=== PATIENT | male | born 1975 | race Caucasian/White ===

== ENCOUNTER 2021-09-21 19:42 | Emergency (ER) | payer BC ==
[~2021-09-21] VITALS: Ht 72 cm; Wt 104.3 kg
[~2021-09-21 19:42] MED LIST: ALAVERT; HYDR1TAB PO; ONDA8TAB9 PO
[2021-09-21 19:58] LABS: BASOPHILS # (AUTO) 0.1 10^3/uL (0.0-0.1); BASOPHILS % (AUTO) 1 % (0-10); EOSINOPHILS # (AUTO) 0.1 10^3/uL (0.0-0.3); EOSINOPHILS % (AUTO) 1 % (0-10); HEMATOCRIT 45 % (40-54); HEMOGLOBIN 15.9 g/dL (13.3-17.7); LYMPHOCYTES # (AUTO) 1.7 10^3/uL (1.0-4.0); LYMPHOCYTES % (AUTO) 17 % (12-44); MEAN CORPUSCULAR HEMOGLOBIN 32 pg (25-34); MEAN CORPUSCULAR HGB CONC 35 g/dL (32-36); MEAN CORPUSCULAR VOLUME 91 fL (80-99); MEAN PLATELET VOLUME 9.3 fL (9.0-12.2); MONOCYTES # (AUTO) 0.8 10^3/uL (0.0-1.0); MONOCYTES % (AUTO) 7 % (0-12); NEUTROPHILS # (AUTO) 7.5 10^3/uL (1.8-7.8); NEUTROPHILS % (AUTO) 73 % (42-75); PLATELET COUNT 255 10^3/uL (130-400); WHITE BLOOD COUNT 10.2 10^3/uL (4.3-11.0)
--- NOTE | 2021-09-21 19:58 | ED General ---
General Stated Complaint: BACK PAIN Source of Information: Patient Exam Limitations: No Limitations History of Present Illness Date Seen by Provider: Sep 21, 2021 Time Seen by Provider: 19:56 Initial Comments To ER with left posterior thoracic back pain. This began last night when he rolled over in bed. He thought he pulled a muscle. As the day has gone on the pain has gotten worse. No cough no fevers. Pain is worsened by deep breathing. Timing/Duration: 12-24 Hours Severity: Severe Modifying Factors: worse with Movement Associated Systoms: Chest Pain Allergies and Home Medications Allergies Coded Allergies: No Known Allergies (Verified Allergy, Unknown, 04/29/07) No Known Drug Allergies (Unverified , 03/22/09) Patient Home Medication List Home Medication List Reviewed: Yes Hydrocodone Bit/Acetaminophen (Vicodin 5-500 Tablet) 1 Each Tablet, 1 EACH PO Q4HR PRN Prescribed by: RPISCILLA MENDOZA MD on 04/08/1017 Ondansetron Hcl (Zofran Odt) 8 Mg/Tab Tab.rapdis, 8 MG PO Q4H Prescribed by: PRISCILLA MENDOZA MD on 04/08/1017 [Alavert] , (Reported) Entered as Reported by: ANNE MARIE DOMINGUEZ on 04/07/10 5783 Review of Systems Review of Systems Constitutional: see HPI; No chills, No fever EENTM: see HPI Respiratory: see HPI, dyspnea on exertion Genitourinary: no symptoms reported Musculoskeletal: no symptoms reported Skin: no symptoms reported Psychiatric/Neurological: No Symptoms Reported Hematologic/Lymphatic: No Symptoms Reported Past Ahurjhq-Fettec-Qfjobg Hx Past Medical History Reproductive Disorders: No Physical Exam Vital Signs Vital Signs - First Documented Capillary Refill : Height, Weight, BMI Height: '" Weight: lbs. oz. kg; BMI Method: General Appearance: WD/WN, Mild Distress (Shallow breathing secondary to pain. The skin overlying the posterior left thorax is normal in appearance. There are crackles over the posterior left lung base) Eyes: Bilateral Eye Normal Inspection, Bilateral Eye PERRL Respiratory: No Accessory Muscle Use, No Respiratory Distress Cardiovascular: Regular Rate, Rhythm, Normal Peripheral Pulses Gastrointestinal: Normal Bowel Sounds, Non Tender, Soft Extremity: Normal Capillary Refill, Normal Inspection Neurologic/Psychiatric: Alert, Oriented x3 Skin: Normal Color, Warm/Dry Progress/Results/Core Measures Suspected Sepsis SIRS Temperature: Pulse: Respiratory Rate: Laboratory Tests 09/21/21 19:53: White Blood Count 10.2 Blood Pressure / Mean: Laboratory Tests 09/21/21 19:53: Creatinine 0.99, INR Comment 0.9, Platelet Count 255, Total Bilirubin 0.4 Results/Orders Lab Results Laboratory Tests Test 09/21/21 19:53 Range/Units White Blood Count 10.2 4.3-11.0 10^3/uL Red Blood Count 4.98 4.30-5.52 10^6/uL Hemoglobin 15.9 13.3-17.7 g/dL Hematocrit 45 40-54 % Mean Corpuscular Volume 91 80-99 fL Mean Corpuscular Hemoglobin 32 25-34 pg Mean Corpuscular Hemoglobin Concent 35 32-36 g/dL Red Cell Distribution Width 12.1 10.0-14.5 % Platelet Count 255 130-400 10^3/uL Mean Platelet Volume 9.3 9.0-12.2 fL Immature Granulocyte % (Auto) 1 % Neutrophils (%) (Auto) 73 42-75 % Lymphocytes (%) (Auto) 17 12-44 % Monocytes (%) (Auto) 7 0-12 % Eosinophils (%) (Auto) 1 0-10 % Basophils (%) (Auto) 1 0-10 % Neutrophils # (Auto) 7.5 1.8-7.8 10^3/uL Lymphocytes # (Auto) 1.7 1.0-4.0 10^3/uL Monocytes # (Auto) 0.8 0.0-1.0 10^3/uL Eosinophils # (Auto) 0.1 0.0-0.3 10^3/uL Basophils # (Auto) 0.1 0.0-0.1 10^3/uL Immature Granulocyte # (Auto) 0.1 0.0-0.1 10^3/uL Prothrombin Time 12.8 12.2-14.7 SEC INR Comment 0.9 0.8-1.4 Activated Partial Thromboplast Time 30 24-35 SEC D-Dimer 0.26 0.00-0.49 UG/ML Sodium Level 134 L 135-145 MMOL/L Potassium Level 4.3 3.6-5.0 MMOL/L Chloride Level 99 98-107 MMOL/L Carbon Dioxide Level 23 21-32 MMOL/L Anion Gap 12 5-14 MMOL/L Blood Urea Nitrogen 13 7-18 MG/DL Creatinine 0.99 0.60-1.30 MG/DL Estimat Glomerular Filtration Rate 81 BUN/Creatinine Ratio 13 Glucose Level 484 *H 70-105 MG/DL Calcium Level 9.3 8.5-10.1 MG/DL Corrected Calcium 9.4 8.5-10.1 MG/DL Magnesium Level 1.8 1.6-2.4 MG/DL Total Bilirubin 0.4 0.1-1.0 MG/DL Aspartate Amino Transf (AST/SGOT) 19 5-34 U/L Alanine Aminotransferase (ALT/SGPT) 30 0-55 U/L Alkaline Phosphatase 129 40-136 U/L Myoglobin 24.9 10.0-92.0 NG/ML Troponin I < 0.028 <0.028 NG/ML B-Type Natriuretic Peptide < 10.0 <100.0 PG/ML Total Protein 7.2 6.4-8.2 GM/DL Albumin 3.9 3.2-4.5 GM/DL My Orders Orders - PA ELKINS APRN Cbc With Automated Diff (09/21/21 19:45) Magnesium (09/21/21 19:45) Ekg Tracing (09/21/21 19:45) Comprehensive Metabolic Panel (09/21/21:45) Myoglobin Serum (09/21/21 19:45) Protime With Inr (09/21/21 19:45) Partial Thromboplastin Time (09/21/21 19:45) O2 (09/21/21 19:45) Monitor-Rhythm Ecg Trace Only (09/21/21:45) Lipid Panel (09/22/21 06:00) Ed Iv/Invasive Line Start (09/21/21 19:45) BNP (09/21/21 19:45) Fibrin Degradation Products (09/21/21 19:45) Ketorolac Injection (Toradol Injection) (09/21/21 20:00) Fentanyl Inj (Sublimaze Injection) (09/21/21 20:00) Chest Pa/Lat (2 View) (09/21/21 19:55) Troponin I (09/21/21 19:53) Lactated Ringers (Lr 1000 Ml Iv Solution (09/21/21 20:45) Insulin (Regular) Human (Novolin R (Per (09/21/21 20:45) Medications Given in ED Current Medications Medications Dose Ordered Sig/Nicolas Route Start Time Stop Time Status Last Admin Dose Admin Fentanyl Citrate 50 mcg ONCE ONCE IVP 09/21/21 20:00 09/21/21 20:01 DC 09/21/21 20:10 50 MCG Ketorolac Tromethamine 15 mg ONCE ONCE IVP 09/21/21 20:00 09/21/21 20:01 DC 09/21/21 20:10 15 MG Vital Signs/I&O 09/21/21 09/21/21 19:50 19:50 Temp 36.8 Pulse 93 Resp 22 B/P (MAP) 179/116 (137) Pulse Ox 95 95 O2 Delivery Room Air Room Air Capillary Refill : Departure Communication (Admissions) EKG shows sinus rhythm at [address] segment changes no ectopy Impression Primary Impression: Pleuritic chest pain Additional Impression: Hyperglycemia Disposition: HOME, SELF-CARE Condition: Critical Departure-Patient Inst. Decision time for Depature: 20:37 Referrals: NOAM BROWN DO (PCP/Family) Primary Care Physician Patient Instructions: Pleuritic Chest Pain, High Blood Sugar, Adult ED Add. Discharge Instructions: 1. Medication as directed 2. Follow-up with your doctor next week Scripts Metformin HCl (Metformin HCl) 500 Mg Tablet 500 MG PO BID, #20 TAB Prov: PA ELKINS APRN 09/21/21 PA ELKINS SCRUM COACH Sep 21, 2021 19:57
[2021-09-21] MEDS ORDERED: KETOROLAC 30 MG/ML VIAL IVP ONE (20:00)
[2021-09-21] MEDS ORDERED: fentaNYL INJ 100 MCG/2 ML AMP IVP ONE (20:00)
[2021-09-21 20:09] LABS: ALBUMIN 3.9 GM/DL (3.2-4.5)
[2021-09-21 20:10] LABS: CHLORIDE 99 MMOL/L (98-107); POTASSIUM 4.3 MMOL/L (3.6-5.0); SODIUM 134 MMOL/L (135-145)
[2021-09-21 20:11] LABS: CALCIUM 9.3 MG/DL (8.5-10.1); INR 0.9 (0.8-1.4); PROTHROMBIN TIME PATIENT 12.8 SEC (12.2-14.7)
[2021-09-21 20:12] LABS: TOTAL PROTEIN 7.2 GM/DL (6.4-8.2)
[2021-09-21 20:13] LABS: CARBON DIOXIDE 23 MMOL/L (21-32)
[2021-09-21 20:14] LABS: BILIRUBIN,TOTAL 0.4 MG/DL (0.1-1.0)
[2021-09-21 20:15] LABS: ALKALINE PHOSPHATASE 129 U/L (40-136)
[2021-09-21 20:16] LABS: CREATININE SERUM 0.99 MG/DL (0.60-1.30); GFR ESTIMATED 81
[2021-09-21 20:17] LABS: BUN/CREATININE RATIO 13
--- NOTE | 2021-09-21 20:17 | Diagnostic Imaging Report ---
EXAM: CHEST PA/LAT (2 VIEW) INDICATION: Back pain between shoulder blades radiating into chest. COMPARISON: None. FINDINGS: Normal heart size and central pulmonary vascularity. Low lung volumes with some perihilar consolidation bilaterally. No pleural effusion or pneumothorax. No acute osseous findings. IMPRESSION: Perihilar consolidation is suspicious for pneumonitis. Although there are low lung volumes, this is more prominent than expected for atelectasis given the degree of low lung volumes. Dictated by: Dictated on workstation # [id number]
[2021-09-21 20:19] LABS: ALANINE AMINOTRANSFERASE 30 U/L (0-55); MAGNESIUM 1.8 MG/DL (1.6-2.4)
[2021-09-21 20:34] LABS: GLUCOSE 484 MG/DL (70-105)
[2021-09-21] MEDS ORDERED: METF-397 PO (20:38)
[2021-09-21] MEDS ORDERED: LACTATED RINGERS 1,000 ML IV SCH (20:45)
[2021-09-21] MEDS ORDERED: inSUlin (REGULAR) HUMAN 1 UNIT/0.01 ML (CHARGE PER UNIT) IV SCH (20:45)
[2021-09-21 21:43] VITALS: BP 179/116
== END 2021-09-21 21:48 | disposition home or self-care (01) ==
LOC: EDUNIT# 19:42 → ER 19:44
DX: R07.81 Pleurodynia (principal); R73.9 Hyperglycemia, unspecified
CPT/HCPCS: 36415; 71046; 80053; 82947; 83735; 83874; 83880; 84484; 85025; 85379; 85610; 85730; 93005; 93041

== ENCOUNTER 2021-09-27 15:12 | Emergency (ER) | payer BC ==
[~2021-09-27] VITALS: Ht 183 cm; Wt 104.0 kg
[~2021-09-27 15:12] MED LIST changes: +METF-397 PO
[2021-09-27] MEDS ORDERED: fentaNYL INJ 100 MCG/2 ML AMP IVP STA (15:32)
--- NOTE | 2021-09-27 15:38 | ED Back Pain ---
General Chief Complaint: Back Problems Stated Complaint: BACK PAIN, SOB Source of Information: Patient Exam Limitations: No Limitations (DANN THOMAS) History of Present Illness Date Seen by Provider: Sep 27, 2021 Time Seen by Provider: 15:35 Initial Comments Patient is a 46-year-old male who presents ED with right mid back pain. Acute onset around 8:00 this morning. Described as sharp without radiation. Appears to be worse with movement or deep inspiration. Ports similar type pain to his left back. Patient was seen here in the ED last week diagnosed with pleurisy. He states he was improving with ibuprofen until this morning with a worsening onset but on his right side. Patient had a negative cardiac work-up. No recent travels or surgeries. Denies of any blood disorders. Patient denies chest pain, shortness of breath, cough, headache, Guzman pain, vomiting. Patient refused any lab work at this time. Recommend IM pain medication. He states that his pain is not as bad compared to last visit. (DANN THOMAS) Allergies and Home Medications Allergies Coded Allergies: NKANo Known Allergies (Verified Allergy, Unknown, 04/29/07) No Known Drug Allergies (Unverified , 03/22/09) Patient Home Medication List Home Medication List Reviewed: Yes (DANN THOMAS) Hydrocodone Bit/Acetaminophen (Vicodin 5-500 Tablet) 1 Each Tablet, 1 EACH PO Q4HR PRN Prescribed by: PRISCILLA MENDOZA MD on 04/08/1017 Hydrocodone/Acetaminophen (Hydrocodone-Acetamin 5-325 mg) 1 Each Tablet, 1 TAB PO Q4H PRN for PAIN-MODERATE (5-7) Prescribed by: BRIANNA MCCOY on 09/27/21 160 Metformin HCl (Metformin HCl) 500 Mg Tablet, 500 MG PO BID Prescribed by: PA ELKINS on 09/21/212037 Naproxen (Naproxen) 500 Mg Tablet, 500 MG PO Q12H Prescribed by: BRIANNA MCCOY on 09/27/21 160 Ondansetron Hcl (Zofran Odt) 8 Mg/Tab Tab.rapdis, 8 MG PO Q4H Prescribed by: PRISCILLA MENDOZA MD on 04/08/1017 [Alavert] , (Reported) Entered as Reported by: ANNE MARIE DOMINGUEZ on 04/07/10 3169 Review of Systems Constitutional: No chills, No diaphoresis, No dizziness, No fever, No malaise EENTM: No ear pain, No eye pain Respiratory: No cough, No dyspnea on exertion, No hemoptysis, No orthopnea; short of breath Cardiovascular: No chest pain Gastrointestinal: see HPI; No abdominal pain, No constipation, No diarrhea, No dysphagia Genitourinary: No decreased output, No discharge, No dysuria Musculoskeletal: back pain; No gout, No joint pain Skin: No change in color, No change in hair/nails Psychiatric/Neurological: See HPI; Denies Anxiety, Denies Depressed (DANN THOMAS) All Other Systems Reviewed Negative Unless Noted: Yes (DANN THOMAS) Past Kayhtjx-Nukxyb-Inmtjh Hx Patient Social History Tobacco Use?: Yes Tobacco type used: Cigarettes Use of E-Cig and/or Vaping dev: No Substance use?: No Alcohol Use?: No (DANN THOMAS) Immunizations Up To Date Influenza Vaccine Up-to-Date: No; Not Current First/Initial COVID19 Vaccinat: 2020 Second COVID19 Vaccination [place]: 2020 COVID19 Vaccine Dialysis Biomed Technician: GUI (DANN THOMAS) Past Medical History Reproductive Disorders: No (DANN THOMAS) Physical Exam Vital Signs Vital Signs - First Documented 09/27/21 15:18 Temp 36.7 Pulse 91 Resp 26 B/P (MAP) 122/109 (113) Pulse Ox 98 O2 Delivery Room Air (BELTRAN RIVAS MD) Vital Signs Capillary Refill : (DANN THOMAS) Height, Weight, BMI Height: '" Weight: lbs. oz. kg; 201.00 BMI Method: General Appearance: No Apparent Distress, WD/WN HEENT: PERRL/EOMI, TMs Normal, Normal ENT Inspection, Pharynx Normal Neck: Full Range of Motion, Normal Inspection, Non Tender Cardiovascular: Regular Rate, Rhythm, No Edema, No Gallop Respiratory: Chest Non Tender, Lungs Clear, Normal Breath Sounds, No Accessory Muscle Use, Other Gastrointestinal: Normal Bowel Sounds, No Organomegaly, No Pulsatile Mass, Non Tender Back: Normal Inspection, No CVA Tenderness, No Vertebral Tenderness, Other (No cervical or thoracic midline tenderness. No tenderness to palpate right paraspinal muscle.) Extremity: Normal Capillary Refill, Normal Range of Motion (DANN THOMAS) Progress/Results/Core Measures Results/Orders Vital Signs/I&O 09/27/21 09/27/21 15:18 16:45 Temp 36.7 Pulse 91 77 Resp 26 20 B/P (MAP) 122/109 (113) 122/90 Pulse Ox 98 97 O2 Delivery Room Air Room Air (BELTRAN RIVAS MD) Departure Communication (Admissions) Patient is a 46-year-old male who presents to the ED for right mid upper back pain. Denies any trauma. Worse with deep inspiration or movement. Similar pain to the left mid back improved with pain medication. Patient was seen here on the Sep 21 with a full cardiac work-up with negative cardiac enzymes, D- dimer. Chest x-ray unremarkable. Diagnosed with pleurisy. Patient refused any lab work or imaging today. Denies any leg swelling. Discussed concerns such as potential cardiac versus pulmonary etiology. Patient acknowledges. Was given dose of pain medication per his request with improvement. Requesting a few days worth of pain medicine. If secondary to pleurisy will likely benefit with anti-inflammatories. Breakthrough pain with [place]. Return precaution were discussed with patient. (DANN THOMAS) Impression Primary Impression: Back pain Disposition: HOME, SELF-CARE Condition: Improved Departure-Patient Inst. Decision time for Depature: 16:00 (DANN THOMAS) Referrals: NOAM BROWN DO (PCP/Family) Primary Care Physician Patient Instructions: Acute Pain, Adult Scripts Naproxen (Naproxen) 500 Mg Tablet 500 MG PO Q12H for Pain for 3 Days, #20 TAB Prov: DANN THOMAS 09/27/21 Hydrocodone/Acetaminophen (Hydrocodone-Acetamin 5-325 mg) 1 Each Tablet 1 TAB PO Q4H PRN for PAIN-MODERATE (5-7), #5 TAB Prov: DANN THOMAS 09/27/21 ATTENDING PHYSICIAN NOTE: I was physically present as attending physician in the emergency department during the care of this patient, but I was not directly involved in the decision making or delivery of care for this patient. (BELTRAN RIVAS MD) DANN THOMAS Sep 27, 2021 15:38 BELTRAN RIVAS MD Sep 29, 2021 05:17
[2021-09-27] MEDS ORDERED: KETOROLAC 60 MG/2 ML VIAL IM ONE (15:45)
[2021-09-27] MEDS ORDERED: ACHD5005 PO (16:02)
[2021-09-27] MEDS ORDERED: NAPR-915 PO (16:02)
[2021-09-27 16:45] VITALS: BP 122/90
== END 2021-09-27 16:44 | disposition home or self-care (01) ==
LOC: EDUNIT# 15:12 → ER 15:14
DX: M54.9 Dorsalgia, unspecified (principal); F17.210 Nicotine dependence, cigarettes, uncomplicated
CPT/HCPCS: 99284